=== PATIENT | female | born 1970 | race African-American/Black ===

== ENCOUNTER 2016-11-10 14:48 | Emergency (ER) | payer OTHER ==
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
[~2016-11-10 14:48] MED LIST: DIFLUCAN PO; NO MEDICATIONS; PEN-VEE K PO; VOLTAREN75 MG PO
[2016-11-10 17:16] LABS: URINE SOURCE CLEAN CATCH
[2016-11-10 17:21] LABS: MICRO INDICATED? YES; URINE APPEARANCE CLEAR; URINE BILIRUBIN NEG (NEG); URINE BLOOD 1+ (NEG); URINE COLOR YELLOW; URINE GLUCOSE NEG (NORM); URINE KETONE NEG (NEG); URINE LEUKOCYTE ESTERASE 1+ (NEG); URINE NITRATE NEG (NEG); URINE PH 5.5 (5-8); URINE PROTEIN NEG (NEG); URINE RBC 0-2 /[HPF] (0-2); URINE SPECIFIC GRAVITY <=1.005 (1.003-1.035); URINE UROBILINOGEN 0.2 MG/DL (NORM)
[2016-11-10 17:22] LABS: URINE BACTERIA NEG (NEG); URINE SQUAMOUS EPITHELIAL CELL MODERATE /[HPF]
== END 2016-11-10 18:45 | disposition home or self-care (01) ==
LOC: SED 14:48
PROVIDERS: Nurse Practitioner Family
DX: S93.402A Sprain of unspecified ligament of left ankle, initial encounter (principal); S63.502A Unspecified sprain of left wrist, initial encounter; S16.1XXA Strain of muscle, fascia and tendon at neck level, initial encounter; S80.02XA Contusion of left knee, initial encounter; V43.52XA Car driver injured in collision with other type car in traffic accident, initial encounter; Y92.410 Unspecified street and highway as the place of occurrence of the external cause
CPT/HCPCS: 72100; 72125; 73030; 73090; 73130; 73560; 73610; 73630; 81003; 84703; 99284